=== PATIENT | male | born 1950 | race Caucasian/White ===

== ENCOUNTER → 2016-07-05 | Day surgery (SDC) | payer MEDICARE, BC ==
[~2016-07-05] MED LIST: ACET400C PO; AMLO5CAP PO; AMLO5TAB2 PO; ASCO500T PO; ASPI325T PO; ATOR40TA16 PO; BYST10TA2 PO; CIAL5TAB PO; D400400C; DULO1CAP3 PO; E-20CAP PO; FISH1000 PO; GLUC15002 PO; IOHEXOL 180 MG/ML 20 ML VIAL (for RAD DIAG) EPIDURAL ONE; LIDOCAINE HCL 1% 30 ML VIAL NB ONE; LIDOCAINE HCL 1% PF 30 ML VIAL EPI ONE; LIPI20TA PO; LOSA100T PO; LYRI75CA PO; LYSI1000 PO; MULT-135 PO; MUPI2CRE3; OMEG1CAP33; PROPOFOL 200 MG/20 ML AMP IV ONE; TRIAMCINOLONE ACETONIDE 40 MG/ML VIAL NB ONE; VITA100021 SL; VITA500T49 PO
--- NOTE | 2016-07-08 10:01 | M6 ---
cc: KELLIE GARCIA M.D. DATE 07/05/2016 DATE OF 1950 PROCEDURE Fluoroscopically guided left L4-5 and left L5-S1 transforaminal epidural steroid injection. PROCEDURE NOTE History and physical was completed and signed. Consent was signed. Procedure site was marked. Medications were listed and reconciled. Pain score was recorded. Allergies were noted. Time out was taken. Fluoroscopy time was recorded where applicable. Sedation was administered or directed by Dr. Garcia. The patient was given oxygen. The patient was monitored by a registered nurse. Total procedure time was greater than 15 minutes. An IV was started, blood pressure cuff, pulse oximeter and EKG were applied. The patient was placed in the prone position on a Bronson table, sedated with small amounts of Versed and propofol titrated to effect. Vital signs were monitored and remained stable throughout the procedure. The patient remained responsive throughout the procedure. The lumbar area was scrubbed with antimicrobial solution, prepped with 10% Betadine solution, and draped with sterile drapes. Fluoroscopy was used in both the AP and lateral projections to clearly visualize the left L4-5 and left L5-S1 neural foramen. Then a sterile 22-gauge, 3-1/2 inch Chiba needle was advanced under fluoroscopic guidance into the dorsal most aspect of the foramen. There was negative aspiration for blood or CSF. There was no reported paresthesias by the patient. There was no washout of 2 mL of Omnipaque. Then after waiting approximately 60 seconds, the patient was slowly given 3 mL of 1% Xylocaine, 3mL of Omnipaque and 40 mg of Kenalog at each location. Following this, the patient was taken to the recovery room with stable vital signs, neurologically intact. W. MD ANDRE Long/ABBEY /8:36 AM /9:59 AM
== END | disposition home or self-care (01) ==
LOC: PHSDC 06:53
PROVIDERS: ATTEND Pain Medicine Interventional Pain Medicine
DX: M54.5 Low back pain (principal); I10 Essential (primary) hypertension
CPT/HCPCS: 64483; 64484; 99152; J3301; Q9965